=== PATIENT | male | born 1955 | race Caucasian/White ===

== ENCOUNTER 2016-09-04 13:32 | Day surgery (SDC) | payer OTHER ==
[~2016-09-04] VITALS: Ht 165.1 cm; Wt 87.1 kg
[2016-09-04 15:00] VITALS: Ht 165.1 cm; Wt 87.1 kg
[2016-09-04] MEDS ORDERED: PAIN MED PO (15:07)
[2016-09-04] MEDS ORDERED: CHOLESTEROL MED PO (15:07)
[2016-09-04] MEDS ORDERED: HTN MED PO (15:07)
[2016-09-04 15:18] VITALS: BP 151/67; PULSE 64; RESP 18
[2016-09-04] MEDS ORDERED: PROPOFOL 40 ML ONE (15:33)
[2016-09-04] MEDS ORDERED: LIDOCAINE 2% (SDV) 5 ML INJ ONE (15:33)
[2016-09-04 17:00] VITALS: BP 140/64; PULSE 72; RESP 19
--- NOTE | 2016-09-05 13:05 | GILP ---
DATE OF PROCEDURE: 09/04/2016 NAME OF PROCEDURES: 1. Colonoscopy with polyp ablation. 2. Colonoscopy with snare polypectomy. 3. Colonoscopy with multiple biopsies and localization tattoo. SURGEON: Carla Wade MD PREOPERATIVE DIAGNOSIS(ES) POSTOPERATIVE DIAGNOSIS(ES) HISTORY AND INDICATIONS: PREMEDICATION: Monitored anesthesia care by anesthesiologist. INSTRUMENT USED: PREPARATION: TECHNIQUE: After informed consent, with the patient/relatives understanding the procedure, its indic ations potential risks and complications, including but not limited to: allergic reaction, bleeding, perforation, infection, missed lesions and after all pertinent questions were answered to the patie nt's satisfaction, the patient/relatives signed the witnessed informed consent. Following this, premedication was administered slowly IV push by under careful cardiovascular and re spiratory monitoring with pulse oximetry, automatic blood pressure and awake overnight monitor. Once the sedativ e effect was achieved, the patient was placed in the left lateral decubitus position, digital rectal examination was performed. The colonoscope was then introduced and advanced under visual control th roughout all segments of the colon including: the rectum, sigmoid, descending colon, splenic flexure , transverse colon, hepatic flexure, ascending colon and finally reaching the cecum which was clearl y identified by transillumination, finger indentation and the ileocecal valve. Careful examination o f the mucosa of the lower gastrointestinal tract both on insertion as well as withdrawal of the inst rument disclosed the following findings: Rectal Examination: No evidence of perirectal disease, no masses. Colonic Mucosa: There is a 10 mm polyp in the distal descending colon. The polyp was removed with a polypectomy snare and retrieved upon completion of examination and withdrawal of the instrument. There is a cluster of polyps or submucosal polypoid structures in the transverse colon which is exte nsive for at least 10 cm involvement. Multiple biopsies were obtained and tattoo markings were appl ied to the proximal and distal margin in that segment. There is a 4 mm polyp in the ascending colon which was ablated and a 3 mm polyp on the ileocecal zulma ve which was also ablated. The instrument was withdrawn. On withdrawal of the instrument, no addit ional abnormalities are noted with the exception of moderate sized internal hemorrhoids. The instrument was then withdrawn, the patient tolerated the procedure well and was transferred out of the Endoscopy Suite awake and in good condition to continue recovery under observation. IMPRESSION: 1. A 3 mm polyp, ileocecal valve, ablated. 2. A 4 mm polyp in the ascending colon, ablated. 3. Cluster of polyps versus submucosal polypoid abnormality in the transverse colon, biopsies are o btained. Localization tattoo applied, proximal and distal margins. 4. A 10 mm pedunculated polyp in the distal descending colon, snared and retrieved. 5. Moderate size internal hemorrhoids. PLAN: Pathology will be reviewed as soon as available and a CT of the abdomen with contrast will be obtained. Further recommendation will depend on the patient's clinical course as well as review of biopsies and imaging. Dictated By: CARLA ANDERS Conf#: [id number] DID#: [id number]
== END 2016-09-04 17:46 | disposition home or self-care (01) ==
LOC: GIL 13:32
PROVIDERS: ATTEND Internal Medicine Gastroenterology
DX: Z12.11 Encounter for screening for malignant neoplasm of colon (principal); D12.2 Benign neoplasm of ascending colon; D12.4 Benign neoplasm of descending colon; K64.8 Other hemorrhoids; I10 Essential (primary) hypertension; E78.5 Hyperlipidemia, unspecified
CPT/HCPCS: 45380; 45381; 45385; 88305; Z7610

== ENCOUNTER 2018-12-08 09:11 | Observation (INO) | payer OTHER ==
[2018-12-08] VITALS (22 sets, daily range): BP systolic 110–149; BP diastolic 40–75; PULSE 56–85; RESP 11–29; Ht 167.6 cm; Wt 93.3 kg
[~2018-12-08] VITALS: Ht 167.6 cm; Wt 93.3 kg
[~2018-12-08 09:11] MED LIST: CHOLESTEROL MED PO; HTN MED PO; PAIN MED PO
[2018-12-08] MEDS ORDERED: FURO-110 PO (09:46)
[2018-12-08] MEDS ORDERED: FENO160T13 PO (09:47)
[2018-12-08] MEDS ORDERED: ATOR40TA68 PO (09:48)
[2018-12-08] MEDS ORDERED: BENA1TAB14 PO (09:48)
[2018-12-08] MEDS ORDERED: CARV25TA79 PO (09:48)
[2018-12-08] MEDS ORDERED: IODIXANOL LOCM 50 ML BTL ONE (11:42)
[2018-12-08] MEDS ORDERED: SOD CHLORIDE 0.9% 500 ML ONE (11:42)
[2018-12-08] MEDS ORDERED: BUPIVACAINE 0.5% (SDV) 30 ML INJ ONE (11:42)
[2018-12-08] MEDS ORDERED: LIDOCAINE 1% (MDV) 20 ML INJ ONE (11:42)
[2018-12-08] MEDS ORDERED: POLYMYXIN/BACITRACIN 1L IRRIG IRR SCH (12:00)
[2018-12-08] MEDS ORDERED: CEFAZOLIN 2 GM/50 ML (PMX) 50 ML IVPB SCH (12:00)
[2018-12-08] MEDS ORDERED: DIAZEPAM 5 MG TAB PO SCH (12:00)
[2018-12-08] MEDS ORDERED: FENTAnyl 50 MCG/ML VIAL ONE (12:07)
[2018-12-08] MEDS ORDERED: LIDOCAINE 2% (SDV) 5 ML INJ ONE (12:07)
[2018-12-08] MEDS ORDERED: MIDAZOLAM 1 MG/ML 2 ML INJ ONE (12:08)
[2018-12-08] MEDS ORDERED: PROPOFOL 40 ML ONE (12:08)
[2018-12-08] MEDS ORDERED: EPHEDrine 25 MG/5 ML SYG ONE (12:09)
--- NOTE | 2018-12-08 12:18 | PREAC ---
Date/Time of Note Date/Time of Note DATE: 12/08/18 TIME: 12:13 Anesthesia Eval and Record Evaluation Time Pre-Procedure Interview DATE: 12/08/18 TIME: 12:13 Age 63 Sex male NPO: 8 hrs Preoperative diagnosis cardiomyopathy Planned procedure AICD placement Past Medical History Past Medical History: Includes Cardio: HTN, Dyslipidemia, CAD, CHF GI: Morbid obesity Surgery & Anesthesia Issues No known issue Meds Anticoagulation: No Beta Hood within 24 hr: No Reason Beta Hood not given: Pt. not on B-Hood Reported Medications Atorvastatin* (Atorvastatin*) 40 Mg Tablet, 40 MG PO QHS, #30 TAB 12/08/18 Carvedilol* (Carvedilol*) 25 Mg Tablet, 25 MG PO BID, #60 TAB 12/08/18 Benazepril-Hydrochlorothiazide (Benazepril-Hydrochlorothiazide) 20-25 Mg Tablet, 1 TAB PO DAILY, #30 TAB 12/08/18 Fenofibrate, Micronized* (Fenofibrate*) 160 Mg Tablet, 160 MG PO DAILY, TAB 12/08/18 Furosemide* (Lasix*) 20 Mg Tablet, 20 MG PO BID, TAB 12/08/18 Discontinued Reported Medications [Pain Med] No Conflict Check, PO DAILY for PAIN AND/OR INFLAMMATION 09/04/16 [Cholesterol Med] No Conflict Check, PO DAILY 09/04/16 [Htn Med] No Conflict Check, PO DAILY 09/04/16 Current Medications Cefazolin Sodium/ Dextrose 50 ml @ 100 mls/hr ONCE IVPB ; Start 12/08/18 at 12:00; Stop 12/08/18 at 12:29 Sodium Chloride 1,000 ml @ 20 mls/hr Q24H IV ; Start 12/08/18 at 12:00; Stop 12/10/18 at 13:59 Diazepam (Valium) 5 mg OC PO ; Start 12/08/18 at 12:00; Stop 12/08/18 at 19:00 Meds reviewed: Yes Allergies Coded Allergies: No Known Allergy (Unverified , 12/08/18) Allergies Reviewed: Yes Labs/Studies Labs Reviewed: Reviewed by anesthesiologist Result Diagram: 12/08/18 1016 12/08/18 1016 Laboratory Tests 12/08/18 10:16 test: N/A Studies: ECG Pre-procedure Exam Last vitals Vital Signs Date Temp Pulse Resp B/P (MAP) Pulse Ox O2 O2 Flow FiO2 Time Delivery Rate 12/08/18 97.5 66 16 123/58 99 Room Air 10:22 (79) Airway: Adequate mouth opening, Adequate thyromental dist Mallampati: Mallampati III Teeth: Normal Lung: Normal Heart: Abnormal (cardiomyopathy) ASA Physical Status ASA physical status: 4 Emergency: None Planned Anesthetic General/MAC: MAC Planned Pain Management Parenteral pain med Pre-operative Attestations Prior to commencing anesthesia and surgery, the patient was re-evaluated, there was verification of: *The patient's identity *The results of appropriate recent lab work and preoperative vital signs *The above evaluation not changing prior to induction *Anesthetic plan, risk benefits, alternative and complications discussed with patient/family; questions answered; patient/family understands, accepts and wishes to proceed. APRIL ESPINAL MD December 08, 2018 12:18
--- NOTE | 2018-12-08 13:06 | SIPON ---
Date/Time of Note Date/Time of Note DATE: 12/08/18 TIME: 13:04 Operative Report Preoperative Diagnosis Non-isch cmy, EF 30%, no rev disease - ICD Implant Postoperative Diagnosis same Operation/Procedure Performed ICD Implant [facility] [facility] VVI 50 Full note dictated # [id number] Surgeon see signature line speech and language assistant none Anesthesia: MAC Estimated blood loss: minimal Transfusion Required none Specimen [facility] Grafts/Implants none Complications none KALYAN STAPLETON MD December 08, 2018 13:06
--- NOTE | 2018-12-08 13:19 | PAC ---
Date/Time of Note Date/Time of Note DATE: 12/08/18 TIME: 13:18 Post-Anesthesia Notes Post-Anesthesia Note Last documented vital signs Vital Signs Date Temp Pulse Resp B/P (MAP) Pulse Ox O2 O2 Flow FiO2 Time Delivery Rate 12/08/18 97.5 66 16 123/58 99 Room Air 10:22 (79) Activity: WNL Respiratory function: WNL Cardiovascular function: WNL Mental status: Baseline Pain reasonably controlled: Yes Hydration appropriate: Yes Nausea/Vomiting absent: Yes Comments BP:134/67, P:68, Spo2:100%, T:98,8 APRIL ESPINAL MD December 08, 2018 13:18
[2018-12-08] MEDS ORDERED: HYDROCODONE/APAP (5/325) TAB PO PRN ×2 (13:30→14:00)
[2018-12-08] MEDS ORDERED: FENTAnyl 50 MCG/ML VIAL IV PRN (13:30)
[2018-12-08] MEDS ORDERED: HYDROmorphONE 1 MG/5 ML IV SYRINGE IV PRN (13:30)
[2018-12-08] MEDS ORDERED: morphine 2 MG INJ IV PRN ×2 (13:30)
[2018-12-08] MEDS ORDERED: METOCLOPRAMIDE 10 MG INJ IV PRN (13:30)
[2018-12-08] MEDS ORDERED: ONDANSETRON 4 MG INJ IV PRN ×2 (13:30→14:00)
[2018-12-08] MEDS ORDERED: DIPHENHYDRAMINE 50 MG INJ IV PRN (13:30)
[2018-12-08] MEDS ORDERED: MEPERIDINE 25 MG INJ IV PRN (13:30)
[2018-12-08] MEDS ORDERED: NACL 0.9% 3 ML SYG IV SCH (14:00)
[2018-12-08] MEDS ORDERED: ACETAMINOPHEN 325 MG TAB PO PRN (14:00)
[2018-12-08] MEDS ORDERED: BISACODYL (EC) 5 MG TAB PO PRN (14:00)
[2018-12-08] MEDS ORDERED: DOCUSATE SODIUM 100 MG CAP PO PRN (14:00)
--- NOTE | 2018-12-08 14:21 | HP ---
Date/Time of Note Date/Time of Note DATE: 12/08/18 TIME: 14:21 Assessment/Plan VTE Prophylaxis Pharmacological prophylaxis: other Lines/Catheters IV Catheter Type (from Nrsg): Peripheral IV Assessment/Plan Hospital Course Patient is a male with a past medical history significant for nonischemic cardiomyopathy, hypertension, dyslipidemia who presents to [facility] for elective AICD placement. Patient had uneventful AICD placement and will be observed overnight for comp occasions. Patient doing well no acute complaints except for some surgical site pain. Patient denies chest pain, shortness of breath, headache, nausea, vomiting, abdominal pain, leg pain. Objective Physical exam General: Patient is laying in bed and answers questions appropriately Mentation: Patient is alert and oriented 4, Head: Normocephalic atraumatic Eyes: EOMI, pupils reactive to light Neck: Supple, nontender, midline Respiratory: Clear to auscultation bilaterally Cardiovascular: regular rate, no obvious murmurs Gastrointestinal: non-tender to palpation, bowel sounds heard. Neurological: Moves all extremities spontaneously Skin: Small amount of drainage at surgical site bandaged Assessment and plan Nonischemic cardiomyopathy, ejection fraction 30% -Elective surgical implantation of AICD per cardiology -Continue home meds Acute kidney injury versus chronic kidney disease -Mild, mildly hydrate and recheck in the a.m., patient does not have a history of kidney issues Per his memory, no baseline creatinine could be found in the chart, will mildly hydrate and recheck in a.m. Hypertension -Continue home meds Disability -Continue home meds Disposition -Observe overnight, if okay with cardiology will discharge tomorrow. Result Diagram: 12/08/18 1016 12/08/18 1016 Results 24hrs Laboratory Tests Test 12/08/18 10:16 White Blood Count 7.4 Red Blood Count 4.76 Hemoglobin 13.5 L Hematocrit 41.8 L Mean Corpuscular Volume 87.8 Mean Corpuscular Hemoglobin 28.4 L Mean Corpuscular Hemoglobin Concent 32.3 Red Cell Distribution Width 14.2 Platelet Count 240 Mean Platelet Volume 9.8 Immature Granulocytes % 0.500 H Neutrophils % 53.9 Lymphocytes % 28.4 Monocytes % 12.4 H Eosinophils % 3.7 Basophils % 1.1 Nucleated Red Blood Cells % 0.0 Immature Granulocytes # 0.040 H Neutrophils # 4.0 Lymphocytes # 2.1 Monocytes # 0.9 Eosinophils # 0.3 Basophils # 0.1 Nucleated Red Blood Cells # 0.0 Prothrombin Time 12.6 Prothrombin Time Ratio 1.0 INR International Normalized Ratio 0.93 Activated Partial Thromboplast Time 31.8 Sodium Level 142 Potassium Level 4.9 Chloride Level 110 Carbon Dioxide Level 21 Anion Gap 11 Blood Urea Nitrogen 32 H Creatinine 1.49 H Est Glomerular Filtrat Rate mL/min 48 L Glucose Level 113 Calcium Level 10.0 Triglycerides Level 148 Cholesterol Level 96 L LDL Cholesterol, Calculated 36 HDL Cholesterol 30 Cholesterol/HDL Ratio 3.2 HPI/ROS Admit Date/Time Admit Date/Time December 08, 2018 at 13:45 PMH/Family/Social Past Medical History Medications Current Medications Sodium Chloride 1,000 ml @ 20 mls/hr Q24H IV ; Start 12/08/18 at 12:00; Stop 12/10/18 at 13:59 Diazepam (Valium) 5 mg OC PO ; Start 12/08/18 at 12:00; Stop 12/08/18 at 19:00 Hydromorphone HCl (Dilaudid) 0.2 mg PACU PRN IV MILD PAIN 1-3; Start 12/08/18 at 13:30; Stop 12/08/18 at 21:00 Fentanyl (Sublimaze) 25 mcg PACU ORDER PRN IV MILD PAIN 1-3; Start 12/08/18 at 13:30; Stop 12/08/18 at 21:00 Ondansetron HCl (Zofran Inj) 4 mg PACU ORDER PRN IV NAUSEA/VOMITING; Start 12/08/18 at 13:30; Stop 12/08/18 at 21:00 Metoclopramide HCl (Reglan) 10 mg PACU ORDER PRN IV NAUSEA/VOMITING; Start 12/08/18 at 13:30; Stop 12/08/18 at 21:00 Meperidine HCl (Demerol) 25 mg PACU ORDER PRN IV .RIGORS; Start 12/08/18 at 13:30; Stop 12/08/18 at 21:00 Diphenhydramine HCl (Benadryl) 25 mg PACU ORDER PRN IV .PRURITUS; Start 12/08/18 at 13:30; Stop 12/08/18 at 21:00 Cefazolin Sodium 50 ml @ 100 mls/hr Q8 IVPB ; Start 12/08/18 at 20:00 Morphine Sulfate (morphine) 2 mg Q3 PRN IV SEVERE PAIN LEVEL 7-10; Start 12/08/18 at 13:30 Acetaminophen/ Hydrocodone Bitart ([place] (5/325)) 1 tab Q3H PRN PO MODERATE PAIN LEVEL 4-6; Start 12/08/18 at 13:30 IV Flush (NS 3 ml) 3 ml PER PROTOCOL IV ; Start 12/08/18 at 14:00 Ondansetron HCl (Zofran Inj) 4 mg Q6H PRN IV NAUSEA/VOMITING; Start 12/08/18 at 14:00 Acetaminophen (Tylenol Tab) 650 mg Q6H PRN PO .PAIN 1-3 OR TEMP; Start 12/08/18 at 14:00 Acetaminophen/ Hydrocodone Bitart ([place] (5/325)) 1 tab Q6H PRN PO .PAIN 4-6; Start 12/08/18 at 14:00 Docusate Sodium (Colace) 100 mg Q12H PRN PO .CONSTIPATION; Start 12/08/18 at 14:00 Bisacodyl (Dulcolax) 5 mg DAILY PRN PO .CONSTIPATION; Start 12/08/18 at 14:00 Atorvastatin Calcium (Lipitor) 40 mg QHS PO ; Start 12/08/18 at 21:00 Carvedilol (Coreg) 25 mg BID PO ; Start 12/08/18 at 21:00 Furosemide (Lasix) 20 mg BID DIURETICS PO ; Start 12/08/18 at 18:00 Fenofibrate (Tricor) 145 mg DAILY PO ; Start 12/09/18 at 09:00 Hydrochlorothiazide (Hydrochlorothiazide) 25 mg DAILY PO ; Start 12/09/18 at 09:00 Benazepril HCl (Lotensin) 20 mg DAILY PO ; Start 12/09/18 at 09:00 Coded Allergies: No Known Allergy (Unverified , 12/08/18) Social History Smoking Status: Current every day smoker Exam/Review of Systems Vital Signs Vitals Vital Signs Date Temp Pulse Resp B/P (MAP) Pulse Ox O2 O2 Flow FiO2 Time Delivery Rate 12/08/18 58 15 115/61 98 Room Air 14:01 (79) 12/08/18 98.0 13:13 JOEY CHIU December 08, 2018 14:21
--- NOTE | 2018-12-08 14:29 | CARRPT ---
DATE OF PROCEDURE: REFERRING PHYSICIAN: Obed Avery MD REASON FOR IMPLANTATION: Nonischemic cardiomyopathy, ejection fraction 33% with no reversible ischem ia and class 2 heart failure symptoms. POSTPROCEDURE DIAGNOSES: Nonischemic cardiomyopathy, ejection fraction 33% with no reversible ischem ia and class 2 heart failure symptoms. PROCEDURES PERFORMED: 1. Upper extremity venogram. 2. Fluoroscopy interpretation. 3. ICD implantation. DEVICE INFORMATION: The implanted device is [employer] Fort[employer] Assura VR MRI ICD 1357, serial #[id number]. RV lead is a Durata 7120Q, 58 cm lead [id number]. Acute threshold R-wave 12.1 millivolts, lead impedance 460 ohms, threshold 0.75 volts at 0.5 msec. High voltage impedance is 70 ohms. INITIAL SETTINGS: The patient is set at VVI 50, VT at 150, VT2 at 151 with ATP and VF zone is 200 wi th maximum output after ATP and 36 joules shock. DESCRIPTION OF PROCEDURE: The informed consent was obtained. [facility] in fasting condition. Anesthesiologist supervised airway and sedation. He was given antibiotics prior to procedure. Left side of the chest was prepped and draped in usual sterile fashion. A 1% li docaine was used for local analgesia. The patient had left side of the chest prepped and draped in s terile fashion. Using #10 scalpel after local analgesia, a 3 cm incision was made. Using cautery an d blunt dissection, the pocket was created. Upper extremity was cannulated using modified Selinger t eam after venogram was performed to assess patency. J-wire was passed easily. From there, using an 8-Indonesian sheath, we tried to navigate the lead at the RV apex. There was not a good location on the apical side, but there was more anterior position which appears to be appropriate. The lead was acti vely fixed. Some slack was left inside the lead and the sheath was pulled away. The lead was suture d to the muscle layers with 0 Ethibond sutures. The lead was attached to the generator. The pocket was irrigated with antibiotic solution. Entire system was placed inside the pocket. The skin was cl osed with multiple layers of 2-0 Vicryl suture. Steri-Strips were placed on top of the incision. Th e patient tolerated the procedure well. He is going to have a postop chest x-ray of left pneumothora x and conservative observation. We will keep the patient overnight and discharge home tomorrow if pa tient is stable. Dictated By: KALYAN STAPLETON MD ML/NTS Conf#: [id number] DID#: [id number] CC: JOEY CHIU MD;*EndCC*
[2018-12-08] MEDS ORDERED: hydrALAzine 20 MG INJ IV PRN (14:30)
[2018-12-08] MEDS: SOD CHLORIDE 0.45% 1,000 ML IV SCH (17:04)
[2018-12-08] MEDS: FUROSEMIDE 20 MG TAB PO SCH (18:10)
[2018-12-08] MEDS ORDERED: CEFAZOLIN 1 GM/50 ML (PMX) 50 ML IVPB SCH (20:00)
[2018-12-08] MEDS: CEFAZOLIN 1 GM/50 ML (PMX) 50 ML IVPB SCH (20:54)
[2018-12-08] MEDS ORDERED: ATORVASTATIN 40 MG TAB PO SCH (21:00)
[2018-12-09] VITALS (10 sets, daily range): BP systolic 124–144; BP diastolic 58–72; PULSE 64–82; RESP 18–22
[2018-12-09] MEDS: CEFAZOLIN 1 GM/50 ML (PMX) 50 ML IVPB SCH ×2 (05:41→14:14)
[2018-12-09] MEDS: FUROSEMIDE 20 MG TAB PO SCH (05:41)
[2018-12-09] MEDS ORDERED: HYDROCHLOROTHIAZIDE 25 MG TAB PO SCH (09:00)
[2018-12-09] MEDS ORDERED: FENOFIBRATE 145 MG TAB PO SCH (09:00)
[2018-12-09] MEDS ORDERED: BENAZEPRIL 20 MG TAB PO SCH (09:00)
[2018-12-09] MEDS ORDERED: CEPH500C PO (11:42)
--- NOTE | 2018-12-09 11:43 | PDOCDIS ---
Discharge Instructions CONDITION [id number] Patient Condition: [id number] Stable FOLLOW UP/APPOINTMENTS Follow-up Plan 1. Please follow-up with your rolling machine tender within 2 days to get your creatinine checked. He will need your kidney blood work done by either rolling machine tender or your primary care physician within 2 to 3 days. 2. Please continue home medications 3. Please continue all antibiotic until completed. JOEY CHIU December 09, 2018 11:43
--- NOTE | 2018-12-09 11:45 | CONS ---
Assessment/Plan Assessment/Plan Hospital Course (Demo Recall) IMP: 1.cardiomyopathy with low EF-good volume status on exam 2.s/p ICD POD#1- no sig swelling or signs of active bleeding, interrogated with proper function. No PTX by cxr 3.HTN-reasonable control 4.HL 5.Renal failure-mild acute on chronic Recc: -Ok for d/c planning -abx prophylaxis x total 5 days-keflex 500 BID -Continue coreg/benazepril -Continue statin/tricor -Continue lasix -outpatient close f/u of renal function -wound check with Dr roach 10-14 days Consultation Date/Type/Reason Admit Date/Time December 08, 2018 at 13:45 Initial Consult Date 12/08/18 Type of Consult Cardiology Reason for Consultation cardiomyopathy Requesting Provider: JOEY CHIU Date/Time of Note DATE: 12/09/18 TIME: 11:40 Exam/Review of Systems Vital Signs Vitals Vital Signs Date Temp Pulse Resp B/P (MAP) Pulse Ox O2 O2 Flow FiO2 Time Delivery Rate 12/09/18 98.0 72 22 138/72 96 Room Air 10:08 (94) Intake and Output 12/08/18 12/08/18 12/09/18 1515:00 23:00 07:00 IntakeIntake Total 50 ml 700 ml BalanceBalance 50 ml 700 ml Exam Exam Review of Systems: CONSTITUTIONAL: No fevers, chills. PULMONARY: No sob CARDIOVASCULAR: No chest pain/palpitations GASTROINTESTINAL: No nausea/vomiting. GENITOURINARY: No hematuria/dysuria. MUSCULOSKELETAL: No myagias/arthalgias. PSYCHIATRIC: The patient denies depression. NEUROLOGIC: No weakness Constitutional: alert, oriented Psych: no complaints Head: normocephalic ENMT: mucosa pink and moist Neck: supple, jvd (9 cm water) Respiratory: clear to auscultation Cardiovascular: regular rate and rhythm, other (L upper chest pacer pocket with no sig swelling/dried blood on gauze) Gastrointestinal: nl liver, spleen Musculoskeletal: muscle tone (normal) Extremities: edema (none) Neurological: other (No focal deficits) Labs Result Diagram: 12/09/18 0600 12/09/18 0600 Results 24hrs Laboratory Tests Test 12/09/18 06:00 White Blood Count 9.0 # Red Blood Count 5.17 Hemoglobin 14.4 Hematocrit 45.7 Mean Corpuscular Volume 88.4 Mean Corpuscular Hemoglobin 27.9 L Mean Corpuscular Hemoglobin Concent 31.5 L Red Cell Distribution Width 14.3 Platelet Count 263 Mean Platelet Volume 9.8 Immature Granulocytes % 0.600 H Neutrophils % 61.8 Lymphocytes % 23.1 Monocytes % 10.4 Eosinophils % 3.4 Basophils % 0.7 Nucleated Red Blood Cells % 0.0 Immature Granulocytes # 0.050 H Neutrophils # 5.6 Lymphocytes # 2.1 Monocytes # 0.9 Eosinophils # 0.3 Basophils # 0.1 Nucleated Red Blood Cells # 0.0 Sodium Level 142 Potassium Level 4.8 Chloride Level 107 Carbon Dioxide Level 25 Anion Gap 10 Blood Urea Nitrogen 32 H Creatinine 1.65 H Est Glomerular Filtrat Rate mL/min 42 L Glucose Level 110 Hemoglobin A1c 5.7 Calcium Level 10.2 Magnesium Level 2.0 Total Bilirubin 0.6 Direct Bilirubin 0.00 Indirect Bilirubin 0.6 Aspartate Amino Transf (AST/SGOT) 31 Alanine Aminotransferase (ALT/SGPT) 27 Alkaline Phosphatase 43 Total Protein 7.8 Albumin 4.5 Globulin 3.30 H Albumin/Globulin Ratio 1.36 Medications Medications Current Medications Sodium Chloride 1,000 ml @ 20 mls/hr Q24H IV Last administered on 12/08/18at 17:04; Admin Dose 20 MLS/HR; Start 12/08/18 at 12:00; Stop 12/10/18 at 13:59 Cefazolin Sodium 50 ml @ 100 mls/hr Q8 IVPB Last administered on 12/09/18at 05:41; Admin Dose 100 MLS/HR; Start 12/08/18 at 20:00 Morphine Sulfate (morphine) 2 mg Q3 PRN IV SEVERE PAIN LEVEL 7-10; Start 12/08/18 at 13:30 Acetaminophen/ Hydrocodone Bitart ([place] (5/325)) 1 tab Q3H PRN PO MODERATE PAIN LEVEL 4-6; Start 12/08/18 at 13:30 IV Flush (NS 3 ml) 3 ml PER PROTOCOL IV ; Start 12/08/18 at 14:00 Ondansetron HCl (Zofran Inj) 4 mg Q6H PRN IV NAUSEA/VOMITING; Start 12/08/18 at 14:00 Acetaminophen (Tylenol Tab) 650 mg Q6H PRN PO .PAIN 1-3 OR TEMP Last administered on 12/08/18 15:02; Admin Dose 650 MG; Start 12/08/18 at 14:00 Acetaminophen/ Hydrocodone Bitart ([place] (5/325)) 1 tab Q6H PRN PO .PAIN 4-6; Start 12/08/18 at 14:00 Docusate Sodium (Colace) 100 mg Q12H PRN PO .CONSTIPATION; Start 12/08/18 at 14:00 Bisacodyl (Dulcolax) 5 mg DAILY PRN PO .CONSTIPATION; Start 12/08/18 at 14:00 Atorvastatin Calcium (Lipitor) 40 mg QHS PO Last administered on 12/08/18at 20:47; Admin Dose 40 MG; Start 12/08/18 at 21:00 Carvedilol (Coreg) 25 mg BID PO Last administered on 12/09/18at 09:29; Admin Dose 25 MG; Start 12/08/18 at 21:00 Furosemide (Lasix) 20 mg BID DIURETICS PO Last administered on 12/09/18at 05:41; Admin Dose 20 MG; Start 12/08/18 at 18:00 Fenofibrate (Tricor) 145 mg DAILY PO Last administered on 12/09/18 09:30; Admin Dose 145 MG; Start 12/09/18 at 09:00 Hydrochlorothiazide (Hydrochlorothiazide) 25 mg DAILY PO Last administered on 12/09/18 09:30; Admin Dose 25 MG; Start 12/09/18 at 09:00 Benazepril HCl (Lotensin) 20 mg DAILY PO Last administered on 12/09/18 09:29; Admin Dose 20 MG; Start 12/09/18 at 09:00 Hydralazine HCl (Apresoline) 10 mg Q4H PRN IV sbp >160; Start 12/08/18 at 14:30 KATIE PEREZ December 09, 2018 11:45
--- NOTE | 2018-12-09 11:46 | DS ---
Date/Time of Note Date/Time of Note DATE: 12/09/18 TIME: 11:46 Discharge Summary Admission/Discharge Info Admit Date/Time December 08, 2018 at 13:45 Discharge Date/Time Patient Condition: Stable Hospital Course Patient is a male with a past medical history significant for nonischemic cardiomyopathy with ejection fraction of 30%, hypertension, who presents to [facility] for elective AICD placement per cardiology. Patient had an uneventful night, did well and is stable for discharge today per hookman. Patient will be discharged with a short course of antibiotics to prevent infection. After speaking with patient's hookman and patient, patient had a slight increase in his creatinine levels however patient has reliable follow-up with his primary care provider and will see his hookman within 2 days to get repeat creatinine level. Patient understands the importance of follow-up as did not have worsening renal failure. Patient will be discharged. Discharge diagnosis Nonischemic cardiomyopathy, status post AICD placement Acute kidney injury versus chronic kidney disease Hypertension Dyslipidemia Home Meds Active Scripts Cephalexin* (Cephalexin*) 500 Mg Capsule, 500 MG PO BID, #10 CAP Prov:ARAMJOEY 12/09/18 Reported Medications Atorvastatin* (Atorvastatin*) 40 Mg Tablet, 40 MG PO QHS, #30 TAB 12/08/18 Carvedilol* (Carvedilol*) 25 Mg Tablet, 25 MG PO BID, #60 TAB 12/08/18 Benazepril-Hydrochlorothiazide (Benazepril-Hydrochlorothiazide) 20-25 Mg Tablet, 1 TAB PO DAILY, #30 TAB 12/08/18 Fenofibrate, Micronized* (Fenofibrate*) 160 Mg Tablet, 160 MG PO DAILY, TAB 12/08/18 Furosemide* (Lasix*) 20 Mg Tablet, 20 MG PO BID, TAB 12/08/18 Discontinued Reported Medications [Pain Med] No Conflict Check, PO DAILY for PAIN AND/OR INFLAMMATION 09/04/16 [Cholesterol Med] No Conflict Check, PO DAILY 09/04/16 [Htn Med] No Conflict Check, PO DAILY 09/04/16 Follow-up Plan 1. Please follow-up with your hookman within 2 days to get your creatinine checked. He will need your kidney blood work done by either hookman or y our primary care physician within 2 to 3 days. 2. Please continue home medications 3. Please continue all antibiotic until completed. Primary Care Provider Glo Kamara Time spent on discharge: > 30 minutes Pending Labs Laboratory Tests Test 12/09/18 06:00 White Blood Count 9.0 10^3/ul (4.8-10.8) Red Blood Count 5.17 10^6/ul (4.70-6.10) Hemoglobin 14.4 g/dl (14.0-18.0) Hematocrit 45.7 % (42.0-52.0) Mean Corpuscular Volume 88.4 fl (82.0-101.0) Mean Corpuscular Hemoglobin 27.9 pg (29.0-33.0) Mean Corpuscular Hemoglobin Concent 31.5 g/dl (32.0-37.0) Red Cell Distribution Width 14.3 % (11.5-14.5) Platelet Count 263 10^3/UL (140-415) Mean Platelet Volume 9.8 fl (7.4-10.4) Immature Granulocytes % 0.600 % (0.001-0.429) Neutrophils % 61.8 % (39.0-77.0) Lymphocytes % 23.1 % (15.0-51.0) Monocytes % 10.4 % (0.0-11.0) Eosinophils % 3.4 % (0.0-7.0) Basophils % 0.7 % (0.0-2.0) Nucleated Red Blood Cells % 0.0 /100WBC (0.0-0.0) Immature Granulocytes # 0.050 10^3/ul (0.0-0.031) Neutrophils # 5.6 10^3/ul (1.6-7.5) Lymphocytes # 2.1 10^3/ul (0.8-2.9) Monocytes # 0.9 10^3/ul (0.3-0.9) Eosinophils # 0.3 10^3/ul (0.0-0.5) Basophils # 0.1 10^3/ul (0.0-0.1) Nucleated Red Blood Cells # 0.0 10^3/ul (0.0-0.0) Sodium Level 142 mmol/L (135-144) Potassium Level 4.8 mmol/L (3.5-5.1) Chloride Level 107 mmol/L (97-110) Carbon Dioxide Level 25 mmol/L (21-31) Anion Gap 10 (5-13) Blood Urea Nitrogen 32 mg/dl (7-20) Creatinine 1.65 mg/dl (0.61-1.24) Est Glomerular Filtrat Rate mL/min 42 mL/min (>60) Glucose Level 110 mg/dl (70-220) Hemoglobin A1c 5.7 % (0-5.9) Calcium Level 10.2 mg/dl (8.4-10.2) Magnesium Level 2.0 mg/dl (1.7-2.5) Total Bilirubin 0.6 mg/dl (0.2-1.3) Direct Bilirubin 0.00 mg/dl (0.00-0.20) Indirect Bilirubin 0.6 mg/dl (0-1.1) Aspartate Amino Transf (AST/SGOT) 31 IU/L (15-46) Alanine Aminotransferase (ALT/SGPT) 27 IU/L (13-69) Alkaline Phosphatase 43 IU/L (42-121) Total Protein 7.8 g/dl (6.1-8.1) Albumin 4.5 g/dl (3.3-4.9) Globulin 3.30 g/dl (1.3-3.2) Albumin/Globulin Ratio 1.36 JOEY CHIU December 09, 2018 11:46
[2018-12-09] MEDS: SOD CHLORIDE 0.45% 1,000 ML IV SCH (12:00)
--- NOTE | 2018-12-09 16:18 | RADRPT ---
Vent Rate: 57 bpm RR Interval: 1026 msec VT Interval: 170 msec QRS Duration: 159 msec QT Interval: 448 msec QTC Interval: 442 msec P-R-T [place]: 38 - -74 - -87 degrees Ventricular-paced complexes...other complexes also detected Right bundle branch block...QRSd>120, terminal axis(90,270) LVH with IVCD and secondary repol abnrm...multi-criteria, wQRSd, abnr ST-T Electronically Signed By: Antwon White
--- NOTE | 2018-12-09 16:18 | RADRPT ---
Vent Rate: 65 bpm RR Interval: 924 msec [place] Interval: 160 msec QRS Duration: 159 msec QT Interval: 429 msec QTC Interval: 446 msec P-R-T [place]: 7 - -74 - -78 degrees Sinus rhythm...normal P axis, V-rate 50- 99 Right bundle branch block...QRSd>120, terminal axis(90,270) LVH with IVCD and secondary repol abnrm...multi-criteria, wQRSd, abnr ST-T Electronically Signed By: Antwon White
== END 2018-12-09 16:59 | disposition home or self-care (01) ==
LOC: CCL 09:11 → SDS 09:11 → CCL 13:44 → REC 13:45 → SUATTDRO 13:45 → 6WM 17:53
PROVIDERS: ADMIT Internal Medicine; ATTEND Internal Medicine
DX: I42.9 Cardiomyopathy, unspecified (principal); E78.5 Hyperlipidemia, unspecified; I10 Essential (primary) hypertension
CPT/HCPCS: 33249; 71045; 80048; 80053; 80061; 82465; 83036; 83735; 85025; 85610; 85730; 93005; C1722; C1895; J0690; J2250; J3010; J7040; Q9967; Z7500; Z7610; G0378